=== PATIENT | male | born 1955 | race Caucasian/White ===

== ENCOUNTER 2025-05-05 09:52 | Outpatient (AMB) | payer MEDICARE, OTHER, SELFPAY ==
--- NOTE | 2025-05-05 09:58 | MHC.PC.OV ---
Vital Signs 05/05/25 10:08 Height 5 ft 7 in Weight 200 lb 4 oz BMI 31.4 BP 146/92 H Blood Pressure Location Rt brachial Position Sitting Respiration 15 Pulse 58 Pulse Source Pulse Oximeter Temp 97.6 F Temp Source Temporal Artery Scan Pulse Oximetry (%) 98 Oxygen Delivery Method Room Air Intake Visit Reasons: PE, PSYCHOLOGY FELLOW Intake Note: Jason presents in the office today to establish care. Allergies No Known Allergies Allergy (Verified 05/05/25 10:03) Medication List - Last Reconciled 05/05/25 by Jeffrey Mari MD alfuzosin ER 10 mg PO DAILY finasteride 5 mg PO DAILY rosuvastatin (Crestor) 5 mg PO DAILY Tobacco use date assessed: 05/05/25 Fall risk assessment: No Falls in past year Last assessed Fall Risk: 05/05/25 Dental Screening Dental Screen Date: 05/05/25 Did you have a dental visit in the last 12 months?: Yes Did you have a dental problem in the last 6 months where you did not have access to dental care?: No Was dental information given to patient?: Patient has dentist HPI PE, PSYCHOLOGY FELLOW HPI Details New Patient? ?? Prior PCP:? dr Mar In [place] Last office visit/CPE:? Apr Checkup f/u BP Acute issue(s):? BP elevated HLD BPH and has TURP Jun 18. 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 Followed by GI q3 yrs & due. Takes Probiotic. ?? PMHx:? HLD, BPH, Urinary Retention Dr Bess @ [facility]. H/o Covid. SurgHx:?GB 2014. R Groin hernia repair SocHx: Nonsmoker. etOH rarely. No Drugs PFSH Medical History (Updated 05/05/25 @ 10:56 by Bryce Arellano) Hernia FH: cholecystectomy Hypertension Enlarged prostate Hyperlipemia Family History (Updated 05/05/25 @ 10:07 by Daja Ang MA) Mother Hypertension Hyperlipemia Father Hypertension Brother Substance abuse Alcoholism Throat cancer Social History (Updated 05/05/25 @ 10:07 by Daja Ang MA) Housing: House Alcohol intake: never Patient Tobacco Use Status: Never used Tobacco e-Cigarette/Vaping Use: Never Used Second Hand Smoke Exposure: No Use of substances other than those prescribed or required for medical reasons: No service: Yes ([employer] 20 years) Current occupational status: retired Current occupational exposures/hazards: No Cognitive needs: No Hearing needs: No Vision needs: No Questionnaire PHQ-9 Over the last 2 weeks, how often have you been bothered by any of the following problems? 1. Little interest or pleasure in doing things: not at all 2. Feeling down, depressed, or hopeless: not at all 3. Trouble falling or staying asleep, or sleeping too much: not at all 4. Feeling tired or having little energy: not at all 5. Poor appetite or overeating: not at all 6. Feeling bad about yourself - or that you are a failure or have let yourself or your family down: not at all 7. Trouble concentrating on things, such as reading the newspaper or watching television: not at all 8. Moving or speaking so slowly that other people could have noticed. Or the opposite - being so fidgety or restless that you have been moving around a lot more than usual: not at all 9. Thoughts that you would be better off or of hurting yourself in some way: not at all Total score: 0 Depression Screening Interpretation: Negative Depression Screening Done: Yes 79260 - PHQ-9 Billing: Yes Source: Developed by Drs. William Blue, Alicia Britton, Luiz Morales and colleagues, with an educational bonny from [employer]. Thrive Questionnaire Date Thrive assessed: 05/05/25 I am a: Patient What is your living situation today?: I have a steady place to live Within the past 12 months, did the food you bought not last and you didn't have the money to get more?: Never true Within the past 12 months, did you worry whether your food would run out before you got money to buy more?: Never true Do you have trouble paying for medicines?: No Do you have trouble getting transportation to medical appointments?: No Do you have trouble paying your heating and electricity bill?: No Do you have trouble taking care of your child, family member or friend?: No Do you have trouble with day-to-day activities such as bathing, preparing meals, shopping, managing finances, etc.?: No Are you currently unemployed and looking for a job?: No Are you interested in more education?: No Please select the resources that you would like help with: None Currently or been in a relationship where the following occur: No concerns reported THRIVE Score: 0 AUDIT C Alcohol Use Questionnaire (AUDIT-C) 1. How often do you have a drink containing alcohol?: Never 3. How often do you have six or more drinks on one occasion?: Never Total Score: 0 RIP-7 AMB Questionnaire RIP-7 Date RIP - 7 assessed: 05/05/25 Feeling nervous, anxious, or on edge: 0 = Not at all Not being able to stop or control worryin = Not at all Worrying too much about different things: 0 = Not at all Trouble relaxin = Not at all Being so restless that it is hard to sit still: 0 = Not at all Becoming easily annoyed or irritable: 0 = Not at all Feeling afraid as if something awful might happen: 0 = Not at all Total RIP-7 score (0-4 normal; 5-9 mild; 10-14 moderate; 15-21 severe): 0 Source: Developed by Drs. William Blue, Alicia Britton, Luiz Morales and colleagues, with an educational bonny from [employer]. RIP-7 Assessment Billing RIP-7 Assessment Tool: RIP-7 Assessment 25582 Review of Systems Const Denies chills, Denies fatigue, Denies fever(s), Denies headache(s) and Denies weakness ENT Denies dizziness and Denies headache(s) Card Denies chest pain, Denies lightheadedness, Denies dyspnea and Denies other (Palpitations) Resp Denies cough, Denies dyspnea, Denies wheezing and Denies other ( shortness of breath) Musc Denies numbness and Denies tingling Neuro Denies dizziness, Denies headache(s), Denies numbness, Denies tingling, Denies paresthesias and Denies weakness Psych Denies anxiety and Denies depression Endo Denies fatigue Aller/Immun Denies wheezing Physical exam (Primary Care) Vital Signs: Last Vital Signs Temp 97.6 F 05/05/25 10:08 Pulse 58 05/05/25 10:08 Resp 15 05/05/25 10:08 BP 146/92 H 05/05/25 10:08 Pulse Ox 98 05/05/25 10:08 Oxygen Delivery Method Room Air 05/05/25 10:08 BMI result Body Mass Index 31.4 Tobacco/Smoking Status: Tobacco use Status Tobacco use date assessed 05/05/25 05/05/25 10:13 Patient Tobacco Use Status Never used Tobacco 05/05/25 10:13 e-Cigarette/Vaping Use Never Used 05/05/25 10:13 PHQ-9: PHQ-9 Score PHQ-9: Total score 0 05/05/25 10:26 Depression Screening Interpretation: Negative Thrive Assessment: Date of Thrive Assessment Date Thrive assessed 05/05/25 05/05/25 10:01 Currently or been in a relationship where the following occur: No concerns reported Const General: no acute distress and well developed Nutritional Appearance: well nourished Orientation/consciousness: patient oriented x3 HENMT Head: Yes normocephalic and Yes atraumatic Eyes General: appearance normal, both eyes and all related structures Pupils: Equal, round and reactive pupils present EOM: EOMs intact bilaterally Resp Effort & Inspection: normal respiratory effort Auscultation: clear to auscultation bilaterally Cardio Rate: regular rate Rhythm: regular rhythm Heart sounds: S1 normal heart sound present, S2 normal heart sound present, no gallops, no murmurs and no rubs Neuro General: patient oriented x3 and gait normal Cranial nerves: Yes Equal, round and reactive pupils present Psych Affect: normal affect Coding Level of Care Code New Pt Level 3 (11230) Diagnoses Hypertension I10 Hyperlipemia E78.5 Enlarged prostate N40.0 Screening for colon cancer Z12.11 Laboratory exam ordered as part of routine general medical examination Z00.00 Additional Codes RIP-7 Assessment Billing - RIP-7 Assessment Tool: RIP-7 Assessment 18083 ([id number]) PHQ-9 - 86621 - PHQ-9 Billing: Yes ([id number]) Assessment & Plan Assessment & Plan (1) Hypertension: Code(s): I10 - Essential (primary) hypertension Category: Medical Plan: History of hypertension. He says he has not been taking medication for this since he had significant weight loss Blood pressure is greater than 140/90 today. New patient and no prior data for blood pressures. Will give him a script for a blood pressure monitor. He will let me know if his blood pressures are running high at home. Will follow-up at next visit (2) Hyperlipemia: Code(s): E78.5 - Hyperlipidemia, unspecified Category: Medical Plan: He is on Crestor Check lipids (3) Enlarged prostate: Code(s): N40.0 - Benign prostatic hyperplasia without lower urinary tract symptoms Category: Medical Plan: Followed by urology Continue alfuzosin and finasteride Checking PSA (4) Screening for colon cancer: Code(s): Z12.11 - Encounter for screening for malignant neoplasm of colon Category: Medical Plan: Patient says he is followed about Q 3 years Referred to Gastroenterology (5) Laboratory exam ordered as part of routine general medical examination: Code(s): Z00.00 - Encounter for general adult medical examination without abnormal findings Category: Medical Plan: Check labs Orders: Orders Comprehensive [place]. Panel Fast Today Z00.00 - Encounter for general adult medical examination without abnormal findings Microalbumin, Random (w Creat) Today I10 - Essential (primary) hypertension Lipid Panel Today Z00.00 - Encounter for general adult medical examination without abnormal findings UA CC w/rflx Micro + Cult Today Z00.00 - Encounter for general adult medical examination without abnormal findings Complete Blood Count Auto Diff Today Z00.00 - Encounter for general adult medical examination without abnormal findings TSH reflex Free T4 Today Z00.00 - Encounter for general adult medical examination without abnormal findings Referrals Gastroenterology Referral Z12.11 - Encounter for screening for malignant neoplasm of colon Medications: New blood pressure monitor Automatic, Digital. Dx: I10. Daily As directed, 999 days/lifetime 1 ea 0RF I10 - Essential (primary) hypertension colchicine 0.6 mg PO BID PRN 8 tabs 2RF Gout Flare 4 days
[2025-05-05 10:08] VITALS: BP 146/92; PULSE 58; RESP 15; TEMP 36.4; O2SAT 98; BMI 31.4
--- OUTSIDE RECORDS SUMMARY | 2025-05-05 11:35 | XMS_ITS | Encounter Summary ---
Author Organization [facility] Address [address] [place] [address] Care Team Providers Care Rock Lather Name Role Phone Isabela Dhaliwal DO, Thomas J. Primary Care Prov ider Encounter Details Date Type Department Care Team (Late st Contact Info) Description 07/06/2022 Orders Only [facility] Lab [address] [place] [address] Aliza Interiano MD [address] [place] [address] Diarrhea of presumed infectious origin (Primary Dx); Loss of weight Social History Tobacco Use Types Packs/Day Years Used Date Smoking Tobacco: Never Smokeless Tobacco: Never Comments:: Alcohol Use Standard Drinks/Week Comments No 0 (1 standard drink = 0.6 oz pur e alcohol) Transportation Answer Date Recorded Please ashlyn the areas for ich the patient would like information or assistance: None Apply 01/05/2021 Lack of Transportation (Medical) Not on file 01/05/2021 Housing Stability Answer Date Recorded Please ashlyn the areas for ich the patient would like information or assistance: None Apply 01/05/2021 Unable to Pay for Housing in the Last Year Not o n file 01/05/2021 Last EPDS Total Score Not on file 01/05/2021 Unstable Housing in the Last Year Not on file 01/05/2021 Sex and Gender Information Value Date Recorded Sex Assigned at Male 12/24/2017 8:43 AM EDT Legal Sex Male 12:42 AM EDT Gender Identity Male 12/24/2017 8:43 AM EDT Sexual Orientation Straight 12/24/2017 8: 43 AM EDT documented as of this encounter Plan of Treatment Not on file documented as of this encounter Results * Due to [place] state law, this organization might not be sharing negative HIV tests. * SIBO - Miscellaneous Test (07/09/2022 7:45 AM EST) Miscellaneous Lab Test Result [facility] 07/17/2022 11:17 AM EST EXTERNAL NON-INTERFACE D LAB Breath Mouth region structure / Unknown Non-Blood Collection / Unknown 07/09/2022 7:45 AM EST 07/09/2022 7:53 AM EST Narrative EXTERNAL NON-INTERFACED LAB - 07/17/2022 11:17 AM EST See Scanned Report us Aliza Interiano MD LAB BLOOD ORDERABLES Final Resul t EXTERNAL NON-INTERFACED LAB documented in this encounter Visit Diagnoses Diagnosis Diarrhea of presumed infectious origin- Primary Loss of weight documented in this encounter Care Teams Rock Lather Relationship Specialty Start Date End Date Jeffrey Mar Jr., [address] [place] [id number] PCP - General Family Medicine 03/14/17 04/16/25 documented as of this encounter
--- OUTSIDE RECORDS SUMMARY | 2025-05-05 11:35 | XMS_ITS | Clinical Summary ---
Author Organization [facility] Address [address] [place] [address] Care Team Providers Care Artificial Flowers Starcher Name Role Phone Unavailable Primary Care Provider Unavailabl e Allergies No known active allergies Medications FOLIC ACID/MULTIVIT-CO N/LUTEIN (CENTRUM SILVER ORAL) Take 1 tablet by mouth daily. Active vitamin D3 25 mcg (1,000 unit) capsule Take 2,000 Units by mouth once a day. Active cyclobenzaprine (FLEXERIL) 10 mg tabletIndication s:Acute right-sided low back pain with sciatica, sciatica laterality unspecified Take 1 tablet (10 mg total) by mouth 3 times a day as needed for muscle spasms. 30 tablet 3 Active Additional Information Patient not taking.Reported on 01/10/2024 vitamin B complex capsule Take 1 capsule by mouth once a day. Active colchicine (COLCRYS) 0.6 mg tabletIndication s:Acute gout involving toe of left foot, unspecified cause 2 tabs PO once then 1 tab PO one hour later. If pain continues, take 1 tab PO daily for up to 3 days 6 tablet 5 3 Active sildenafiL (VIAGRA) 100 mg tablet Take 1 tablet (100 mg total) by mouth as needed for erectile dysfunction. 6 tablet 3 4 Active alfuzosin (UROXATRAL) 10 mg 24 hr tablet Take 1 tablet (10 mg total) by mouth once a day. 90 tablet 3 4 06/05/20 25 Active rosuvastatin (CRESTOR) 5 mg tabletIndication s:Pure hypercholesterol emia,Stage 3a chronic kidney disease (HCC) Take 1 tablet (5 mg total) by mouth once a day. 90 tablet 3 Active Active Problems Problem Noted Date Diagnosed Date Headache disorder 11/22/2023 Stage 3a chronic kidney disease 07/12/2020 Rash 09/19/2017 Contact dermatitis 09/05/2017 Microscopic hematuria 07/19/2016 Renal colic 07/19/2016 Allergic rhinitis 01/08/2014 Abdominal cramping 09/22/2013 Gout 04/19/2012 Toe joint pain 04/18/2012 Male erectile disorder 11/23/2010 Hypercholesterolemia 11/01/2010 Hypertension 11/01/2010 Resolved Problems Problem Noted Date Diagnosed Date Resolved Date Viral gastroenteritis 12/20/20162016 Acute laryngitis 10/26/2014 06/25/2017 Bloating 09/22/2013 06/25/2017 Upper respiratory infection 05/23/2012 06/25/2017 Overweight 11/23/2010 06/25/2017 Encounters Date Type Department Care Team Description 04/08/2025 Orders Only [facility] [address] [place] [address] Jeffrey Mar Jr., DO 02/23/2025 Refill [facility] [address] [place] [address] Jeffrey Mar Jr., DO Hypercholesterolemia; Stage 3a chronic kidney disease (HCC) from Last 3 Months Immunizations Immunization Administration Dates Next Due Covid-19 Monovalent Vaccine, Moderna, mRNA, PF 11/26/2020,10/29/2020 INFLUENZA, SPLIT VIRUS, TRIVALENT, PF ,06/17/2014,05/23/2012,05/25 Influenza, High Dose Seasona l, Preservative Free (FLUZONE HIGH-DOSE) 06/03/2021 Influenza, High Dose Seasona l, Quadrivalent PF 06/12/2022 Influenza, Injectable, Quadr ivalent Preservative Free 06/13/2023,05/05/2020 Influenza, Injectable, Quadr ivalent, Contains Preservative 05/30/2019,06/04/2018,06/25/2017 Influenza, Injectable, Quadr ivalent, Preservative Free 05/05/2020,06/19/2016 Influenza, Trivalent, MDV, Injectable 06/03/2013 Pneumococcal Conjugate Vacci ne, 7 Valent 08/10/2014 Pneumococcal Polysaccharide Vaccine, 23 Valent 07/13/2021,06/19/2016 Pneumococcal conjugate PCV20,polysaccharide [id number] conjugate, adjuvant, PF (Prevnar 20) 10/10/2023 RSV vaccine, recombinant, pr otein subunit RSVpreF, adjuvant reconstituted, 0.5 mL, PF 06/13/2023 Tetanus Toxoid, Reduced Diph theria Toxoid, and Acellular Pertussis Vaccine, Adsorbed 07/14/2019 Zoster Vaccine Recombinant 04/22/2019,11/22/2018 Family History Medical History Relation Name Comments Other Brother 1 Fraternal histo ry of Alcoholism Other Brother 2 Fraternal histo ry of Hypertension Other Father Paternal histor y of Cerebral Artery Aneurysm Other Mother Maternal histor y of Previously Well Relation Name Status Comments Brother 1 Brother 2 Father Mother Social History Tobacco Use Types Packs/Day Years Used Date Smoking Tobacco: Never Smokeless Tobacco: Never Tobacco Cessation:Counseling Given: Not Answered Comments:: Alcohol Use Standard Drinks/Week Comments No 0 (1 standard drink = 0.6 oz pur e alcohol) [facility] Utilities Answer Date Recorded In the past 12 months has th e [employer], gas, oil, or water [employer] threatened to shut off services in your home? No 01/21/2025 Hunger Vital Sign Answer Date Recorded Within the past 12 months, y ou worried that your food would run out before you got the money to buy more. Never true 01/22/20 25 Within the past 12 months, t he food you bought just didn't last and you didn't have money to get more. Never true 01/21/2025 Transportation Answer Date Recorded In the past 12 months, has l ack of reliable transportation kept you from medical appointments, meetings, work or from getting things needed for daily living? No 01/21/2025 Housing Answer Date Recorded Housing Risk Low 2 12/03/2024 Housing Risk Medium Not on file 12/03/2024 Housing Risk High Not on file 12/03/2024 What is your living situation today? [facility] 12/03/2024 Sex and Gender Information Value Date Recorded Sex Assigned at Male 12/24/2017 8:43 AM EDT Legal Sex Male 12:42 AM EDT Gender Identity Male 12/24/2017 8:43 AM EDT Sexual Orientation Straight 12/24/2017 8: 43 AM EDT Last Filed Vital Signs Vital Sign Reading Time Taken Comments Blood Pressure 169/95 05/12/2024 10:57 AM EDT Pulse 55 05/12/2024 10:57 AM EDT Temperature 36.8 C (98.3 F) 12/05/2023 10:36 AM EDT Respiratory Rate 22 10/11/2017 1:30 PM EST Oxygen Saturation 96% 04/16/2024 9:16 AM EDT Inhaled Oxygen Concentration - - Weight 90.7 kg (200 lb) 04/16/2024 9:16 AM EDT Height 170.2 cm (5' 7 ) 10/10/2023 9:05 AM EST Body Mass Index 31.32 10/10/2023 9:05 AM EST Plan of Treatment Health Maintenance Due Date Last Done Comments Cologuard 1955 FOBT / Fit Test 1955 Sigmoidoscopy 1955 Medicare AWV 01/29/1956 Fall Risk Screening 08/27/2024 Health Care Proxy Review 08/27/2024 Basic Metabolic Panel 04/16/2025 04/16/2024 , 10/10/2023, 04/12/2023, Additional history exists COVID-19 Vaccine ( season) 2025 06/13/2023, 05/15/2022, 11/28/2021, Additional history exists Influenza Vaccine (#1) 2025 , 06/12/2022, 06/03/2021, Additional history exists Depression Screening and Follow-Up 01/21/2026 01/21/2025 Social Drivers of Health Annual Screening 01/21/2026 01/21/2025 DTaP,Tdap,and Td Vaccines (2 - Td or Tdap) 07/14/2029 07/14/2019 Colon Cancer Screening 08/17/2032 Colonoscopy 08/17/2032 08/17/2022, 08/0 04/2022, 02/22/2017, Additional history exists Tobacco Screening 08/27/2042 04/16/2024 Zoster Vaccines Completed 04/22/2019, 11/22/2018 Hepatitis C Screening Completed 07/15/2019 RSV Vaccine (60+ years old and patients) Completed 06/13/2023 Pneumococcal Vaccine: 50+ Years Completed 10/10/2023, 07/13/2021, 06/19/2016 Alcohol/Substance Use Screening Completed 01/21/2025, 10/31/2023, 04/02/2023 Statin Therapy Completed 02/23/2025 Hepatitis B Vaccines Aged Out No long er eligible based on patient's age to complete this topic Medical Devices Implanted Type Area Auto Clocks Repairer Device Identifier Shelf Expiration Date Model / Serial / Lot System Hernia Mesh Polypropylene Medium 7cm Prolene 3/Bx - [id number] Implanted:Qty: 1 on 10/11/2017 by Pj Garzon MD at [facility] 10/24/2021 [facility] / / [id number] Procedures * Due to [place] [employer] law, this organization might not be sharing negative HIV tests. Procedure Name Priority Date/Time Associated Diagnosis Comments COMPREHENSIVE METABOLIC PANEL Routine 04/16/2024 9:53 AM EDT Stage 3a chronic kidney disease HM COLONOSCOPY Routine 08/17/2022 HEPATITIS C ANTIBODY W/REFLEX TO HCV RNA, QUANTITATIVE PCR Routine 07/15/2019 8:08 AM EST from Last 3 Months or Most Recently Relevant to Health Maintenance Results * Due to [place] [employer] law, this organization might not be sharing negative HIV tests. * (ABNORMAL) Comprehensive Metabolic Panel (04/16/2024 9:53 AM EDT) Glucose 76 65 - 99 mg/dL 04/16/2024 6:28 PM EDT [facility] Comment: Fasting reference interval BUN 16 7 - 25 mg/dL 04/16/2024 6:28 PM EDT [facility] Creatinine 1.25 0.70 - 1.35 mg/dL 04/16/2024 6:28 PM EDT [facility] eGFR 62 > OR = 60 mL/min/1. 73m2 04/16/2024 6:28 PM EDT [facility] Bun/Creatinine Ratio SEE NOTE: 6 - (calc) 04/16/2024 6:28 PM EDT [facility] Comment: Not Reported: BUN and Creatinine are within reference range. Sodium 139 135 - 146 mmol/L 04/16/2024 6:28 PM EDT [facility] Potassium 4.6 3.5 - 5.3 mmol/L 04/16/2024 6:28 PM EDT [facility] Chloride 107 98 - 110 mmol/L 04/16/2024 6:28 PM EDT [facility] Carbon Dioxide 27 20 - 32 mmol/L 04/16/2024 6:28 PM EDT [facility] Calcium 9.5 8.6 - 10.3 mg/dL 04/16/2024 6:28 PM EDT [facility] Protein, Total 6.6 6.1 - 8.1 g/dL 04/16/2024 6:28 PM EDT [facility] Albumin 4.3 3.6 - 5.1 g/dL 04/16/2024 6:28 PM EDT [facility] Globulin 2.3 1.9 - 3.7 g/dL (calc) 04/16/2024 6:28 PM EDT [facility] Albumin/Globuli n Ratio 1.9 1.0 - 2.5 (calc) 04/16/2024 6:28 PM EDT [facility] Bilirubin, Total 0.7 0.2 - 1.2 mg/dL 04/16/2024 6:28 PM EDT [facility] Alkaline Phosphatase 72 35 - 144 U/L 04/16/2024 6:28 PM EDT [facility] AST 27 10 - 35 U/L 04/16/2024 6:28 PM EDT [facility] ALT 53(H) 9 - 46 U/L 04/16/2024 6:28 PM EDT [facility] Blood Structure of peripheral vein / Unknown 04/16/2024 9:53 AM EDT 04/16/2024 5:19 PM EDT Narrative [facility] - 04/16/2024 6:30 PM EDT FASTING:YES us Jeffrey Mar Jr., DO LAB BLOOD ORDERABL ES Final Result [facility] [address], [place] [address], [place] [phone] [facility] [address] [place] [address] * HM Colonoscopy (08/17/2022) Aliza Interiano MD HEALTH MAINTENANCE Final Result * Hepatitis C Antibody w/Reflex to HCV RNA, Quantitative PCR (07/15/2019 8:08 AM EST) Hepatitis C Antibody NON-REACT DAGO NON-REACT DAGO 07/15/2019 11:53 PM EST [facility] Signal To Cut-Off 0.01 <1.00 07/15/2019 11:53 PM EST [facility] Comment: HCV antibody was non-reactive. There is no laboratory evidence of HCV infection. In most cases, no further action is required. However, if recent HCV exposure is suspected, a test for HCV RNA (test code 28734) is suggested. For additional information please refer to http://education.Business e via [place]/faq/CZW39x4 (This link is being provided for informational/ educational purposes only.) 07/15/2019 8:08 AM EST 07/15/2019 5:58 PM EST Narrative [facility] - 07/16/2019 12:07 AM EST FASTING:YES Jeffrey Mar Jr., DO LAB BLOOD ORDERABL ES Final Result [facility] [address], [place] [address], [facility] [address] [place] [address] from Last 3 Months or Most Recently Relevant to Health Maintenance Insurance [facility] MEDICARE [facility] Advance Directives Documents on File Type Date Recorded Patient Mash Grinder Expl anation Health Care Proxy 10/12/2023 8:46 AM 10/12/spouse Healthcare Agents on File Name Relationship Healthcare Agent Relationship Communication Mary Roa Spouse Health Care Agen t [email or web address]
--- OUTSIDE RECORDS SUMMARY | 2025-05-05 11:35 | XMS_ITS | Encounter Summary ---
Author Organization [facility] Address [address] [place] [address] Care Team Providers Care Mental Telepathist Name Role Phone Isabela Dhaliwal DO, [place] J. Primary Care Prov ider Encounter Details Date Type Department Care Team (Late st Contact Info) Description 08/02/2022 Orders Only [facility] Lab [address] [place] [address] Aliza Interiano MD [address] [place] [address] Gastric tympany (Primary Dx); Mild dietary indigestion Social History Tobacco Use Types Packs/Day Years Used Date Smoking Tobacco: Never Smokeless Tobacco: Never Comments:: Alcohol Use Standard Drinks/Week Comments No 0 (1 standard drink = 0.6 oz pur e alcohol) Transportation Answer Date Recorded Please ashlyn the areas for wh ich the patient would like information or assistance: Health Insurance 07/21/2022 Lack of Transportation (Medical) Not on file 07/21/2022 Housing Stability Answer Date Recorded Please ashlyn the areas for ich the patient would like information or assistance: Health Insurance 07/21/2022 Unable to Pay for Housing in the Last Year Not o n file 07/21/2022 Last EPDS Total Score Not on file 07/21/2022 Unstable Housing in the Last Year Not on file 07/21/2022 Sex and Gender Information Value Date Recorded Sex Assigned at Male 12/24/2017 8:43 AM EDT Legal Sex Male 12:42 AM EDT Gender Identity Male 12/24/2017 8:43 AM EDT Sexual Orientation Straight 12/24/2017 8: 43 AM EDT documented as of this encounter Plan of Treatment Scheduled Orders Name Type Priority Associated Diagnoses Orde r Schedule Celiac Diagnostic Panel w/Gliadin, All Ages (Includes: IgA, tTG IgA/IgG and Giadin IgA/IgG) Lab Routine Gastric tympany Mild dietary indigestion Expected: 08/02/2022, Expires: 08/02/2023 Comprehensive Metabolic Panel Lab Routine Gastric tympany Mild dietary indigestion Expected: 08/02/2022, Expires: 08/02/2023 CBC Auto Differential Lab Routine Gastric tympany Mild dietary indigestion Expected: 08/02/2022, Expires: 08/02/2023 SIBO - Miscellaneous Test Lab Routine Gastric tympany Mild dietary indigestion Expected: 08/02/2022, Expires: 08/02/2023 documented as of this encounter Visit Diagnoses Diagnosis Gastric tympany- Primary Acute dilatation of stomach Mild dietary indigestion Dyspepsia and other specified disorders of function of stomach documented in this encounter Care Teams Mental Telepathist Relationship Specialty Start Date End Date Jeffrey Mar Jr., DO [address] [place] [id number] PCP - General Family Medicine 03/14/17 04/16/25 documented as of this encounter
--- OUTSIDE RECORDS SUMMARY | 2025-05-05 11:35 | XMS_ITS | Encounter Summary ---
Author Organization [facility] Address [address] [place] [address] Care Team Providers Care Product Sales Representative Name Role Phone Isabela Dhaliwal DO, [place] J. Primary Care Prov ider Encounter Details Date Type Department Care Team (Late st Contact Info) Description 08/03/2022 Orders Only [facility] Lab [address] [place] [address] Aliza Interiano MD [address] [place] [address] Social History Tobacco Use Types Packs/Day Years [...] on file documented as of this encounter Visit Diagnoses Not on filedocumented in this encounter Care Teams Product Sales Representative Relationship Specialty Start Date End Date Jeffrey Mar Jr., DO [address] [place] [id number] PCP - General Family Medicine 03/14/17 04/16/25 documented as of this encounter
== END 2025-05-05 11:05 | disposition home or self-care (01) ==
PROVIDERS: PCP Family Medicine; Visit Provider Family Medicine
DX: I10 Essential (primary) hypertension (principal); E78.5 Hyperlipidemia, unspecified; N40.0 Benign prostatic hyperplasia without lower urinary tract symptoms; Z12.11 Encounter for screening for malignant neoplasm of colon; Z00.00 Encounter for general adult medical examination without abnormal findings

== ENCOUNTER 2025-05-05 09:52 | Outpatient (REF) | payer MEDICARE, OTHER, SELFPAY ==
[2025-05-05 14:11] LABS: MANUAL DIFF FLAG NO
[2025-05-05 14:14] LABS: Appearance Urine Cloudy; Glucose Urine UA Negative (Negative); PH 6.0 (5.0-9.0); Specific Gravity - Urine 1.020 (1.005-1.025)
[2025-05-05 14:25] LABS: Hematocrit 47.7 % (42.0-52.0); Hemoglobin 16.6 g/dl (14.0-18.0); Imm Gran Abs Auto 0.04 X10*3/uL (0.00-0.03); Imm Gran Pct Auto 0.4 % (0.0-0.4); Lymphocytes Absolute Auto 3.5 X10*3/uL (1.2-4.9); Mean Corpuscular HGB Conc 34.8 g/dl (31.0-36.0); Mean Corpuscular Hemoglobin 31.2 pg (27.0-33.0); Mean Corpuscular Volume 89.7 fL (80.0-98.0); NRBC Abs Auto 0.000 X10*3/uL (0.0-0.012); NRBC Pct Auto 0.0 /100WBC (0.0-0.2); Platelet Count 228 X10*3/uL (160-400); Red Blood Count 5.32 X10*6/uL (4.60-5.80); White Blood Count 9.3 X10*3/uL (4.8-10.8)
[2025-05-05 14:59] LABS: Alanine Aminotransferase 50 U/L (0-40); Albumin Level 4.5 g/dL (3.5-5.0); Alkaline Phosphatase 76 U/L (39-117); Anion Gap 11 (12-20); Aspartate Amino Transferase 36 U/L (5-37); Blood Urea Nitrogen 17 mg/dL (9-16); Calcium 9.3 mg/dL (8.4-10.2); Carbon Dioxide 27 mmol/L (22-29); Chloride 109 mmol/L (96-108); Cholesterol 153 mg/dL (<200); Estimated Glomerular Filt Rate 57; HDL Cholesterol 44 mg/dL (>40); Potassium 4.5 mmol/L (3.3-5.1); Sodium 142 mmol/L (135-145); Total Protein 6.9 g/dL (6.5-8.0); Triglycerides 110 mg/dL (<150); Uric Acid 7.3 mg/dL (3.4-7.0)
[2025-05-05 15:05] LABS: Microalbum/Creatinine Ratio Ur 12.8 ug/mg cr (<30)
== END 2025-05-05 09:53 | disposition home or self-care (01) ==
LOC: HO.WFDLDS 09:52
PROVIDERS: Visit Provider Family Medicine
DX: Z00.00 Encounter for general adult medical examination without abnormal findings (principal); Z12.11 Encounter for screening for malignant neoplasm of colon; I10 Essential (primary) hypertension; N40.0 Benign prostatic hyperplasia without lower urinary tract symptoms; E78.5 Hyperlipidemia, unspecified; Z79.899 Other long term (current) drug therapy; Z87.39 Personal history of other diseases of the musculoskeletal system and connective tissue
CPT/HCPCS: 36415; 80053; 80061; 81003; 82043; 82570; 84443; 84550; 85025; 96127; 99202

== ENCOUNTER 2025-08-26 11:49 | Outpatient (AMB) | payer MEDICARE, OTHER, SELFPAY ==
--- NOTE | 2025-08-26 12:06 | A.OFFPC_ITS ---
Vital Signs 08/26/25 12:09 Height 5 ft 7 in Weight 206 lb BMI 32.3 BP 116/64 Blood Pressure Location Rt brachial Position Sitting Pulse 59 Pulse Source Pulse Oximeter Temp 99 F Handedness Right Intake Visit Reasons: CPE with f/u labs and health maint. Intake Note: Jason is a 70 year old male who presents today for a office visit. Allergies No Known Allergies Allergy (Verified 08/26/25 12:11) Medication List - Last Reconciled 08/26/25 by Jeffrey Mari MD alfuzosin ER 10 mg PO DAILY blood pressure monitor Automatic, Digital. Dx: I10. Daily As directed, 999 days/lifetime colchicine 0.6 mg PO BID PRN 4 days finasteride 5 mg PO DAILY losartan 50 mg PO DAILY 90 days rosuvastatin (Crestor) 5 mg PO DAILY Tobacco use date assessed: 05/05/25 Dental Screening Dental Screen Date: 05/05/25 HPI CPE with f/u labs and health maint. HPI Details 70 y/o male presents for an extended exa m with f/u labs, health maint. Labs drawn 05/05/25. Reviewed labs with pt. AST 36. ALT 50. Triglycerides 110. TC 153. LDL 87. HDL 44. Blood pressure today 116/64, 59p. He is on losartan 50mg daily. [facility] Medical History (Updated 08/26/25 @ 12:58 by Bryce Arellano) Hernia FH: cholecystectomy Hypertension Enlarged prostate Hyperlipemia Family History (Updated 05/05/25 @ 10:07 by Daja Ang [place]) Mother Hypertension Hyperlipemia Father Hypertension Brother Substance abuse Alcoholism Throat cancer Social History (Updated 05/05/25 @ 10:07 by Daja Agn [place]) Housing: House Alcohol intake: never Patient Tobacco Use Status: Never used Tobacco e-Cigarette/Vaping Use: Never Used Second Hand Smoke Exposure: No service: Yes ([employer] 20 years) Current occupational status: retired Current occupational exposures/hazards: No Cognitive needs: No Hearing needs: No Vision needs: No Questionnaire PHQ-9 Over the last 2 weeks, how often have you been bothered by any of the following problems? 1. Little interest or pleasure in doing things: not at all 2. Feeling down, depressed, or hopeless: not at all 3. Trouble falling or staying asleep, or sleeping too much: not at all 4. Feeling tired or having little energy: not at all 5. Poor appetite or overeating: not at all 6. Feeling bad about yourself - or that you are a failure or have let yourself or your family down: not at all 7. Trouble concentrating on things, such as reading the newspaper or watching television: not at all 8. Moving or speaking so slowly that other people could have noticed. Or the opposite - being so fidgety or restless that you have been moving around a lot more than usual: not at all 9. Thoughts that you would be better off or of hurting yourself in some way: not at all Total score: 0 Depression Screening Interpretation: Negative Depression Screening Done: Yes Source: Developed by Drs. William Blue, Alicia Britton, Luiz Morales and colleagues, with an educational bonny from [email or web address]. Thrive Questionnaire Date Thrive assessed: 04/28/25 I am a: Patient What is your living situation today?: I have a steady place to live Within the past 12 months, did the food you bought not last and you didn't have the money to get more?: Never true Within the past 12 months, did you worry whether your food would run out before you got money to buy more?: Never true Do you have trouble paying for medicines?: No Do you have trouble getting transportation to medical appointments?: No Do you have trouble paying your heating and electricity bill?: No Do you have trouble taking care of your child, family member or friend?: No Do you have trouble with day-to-day activities such as bathing, preparing meals, shopping, managing finances, etc.?: No Are you currently unemployed and looking for a job?: No Are you interested in more education?: No Currently or been in a relationship where the following occur: No concerns reported THRIVE Score: 0 AUDIT C Alcohol Use Questionnaire (AUDIT-C) 1. How often do you have a drink containing alcohol?: Never 2. How many drinks containing alcohol do you have on a typical day when you are drinking?: 1 or 2 (none) 3. How often do you have six or more drinks on one occasion?: Never Total Score: 0 Score Reviewed/Action Taken: Yes RIP-7 AMB Questionnaire RIP-7 Date RIP - 7 assessed: 05/05/25 Feeling nervous, anxious, or on edge: 0 = Not at all Not being able to stop or control worryin = Not at all Worrying too much about different things: 0 = Not at all Trouble relaxin = Not at all Being so restless that it is hard to sit still: 0 = Not at all Becoming easily annoyed or irritable: 0 = Not at all Feeling afraid as if something awful might happen: 0 = Not at all Total RIP-7 score (0-4 normal; 5-9 mild; 10-14 moderate; 15-21 severe): 0 Source: Developed by Drs. William Blue, Alicia Britton, Luiz Morales and colleagues, with an educational bonny from [email or web address]. Review of Systems Const Denies chills, Denies fatigue, Denies fever(s), Denies headache(s) and Denies weakness Eyes Denies change in vision ENT Denies dizziness, Denies headache(s), Denies hearing loss, Denies nasal congestion, Denies sinus pain, Denies sinus pressure and Denies sore throat Card Denies chest pain, Denies lightheadedness, Denies dyspnea and Denies other (palpitations) Resp Denies cough, Denies dyspnea and Denies wheezing GI Denies abdominal pain, Denies melena, Denies hematochezia, Denies change in bowel habits, Denies dyspepsia and Denies nausea Denies hematuria and Denies dysuria Musc Denies abnormal gait, Denies myalgias, Denies arthralgias, Denies numbness and Denies tingling Skin/Breast Denies rash, Denies unusual bruising and Denies wounds Neuro Denies abnormal gait, Denies dizziness, Denies headache(s), Denies memory loss, Denies numbness, Denies Sensory deficit (Neuro), Denies tingling and Denies weakness Psych Denies anxiety, Denies depression and Denies memory loss Endo Denies cold intolerance, Denies fatigue, Denies heat intolerance, Denies polydipsia and Denies polyuria Ever/Lymph Denies easy bleeding and Denies easy bruising Aller/Immun Denies wheezing Physical exam (Primary Care) Vital Signs: Last Vital Signs Temp 99 F 08/26/25 12:09 Pulse 59 08/26/25 12:09 BP 116/64 08/26/25 12:09 BMI result Body Mass Index 32.3 Tobacco/Smoking Status: Tobacco use Status Tobacco use date assessed 05/05/25 08/26/25 12:06 Patient Tobacco Use Status Never used Tobacco 08/26/25 12:06 e-Cigarette/Vaping Use Never Used 08/26/25 12:06 PHQ-9: PHQ-9 Score PHQ-9: Total score 0 08/26/25 12:38 Depression Screening Interpretation: Negative Thrive Assessment: Date of Thrive Assessment Date Thrive assessed 04/28/25 08/26/25 12:06 Currently or been in a relationship where the following occur: No concerns reported Const General: no acute distress, well developed, alert and awake Nutritional Appearance: well nourished Orientation/consciousness: patient oriented x3 HENMT Head: Yes normocephalic and Yes atraumatic Ears: hearing grossly normal bilaterally and TM's normal bilaterally General nose exam: Normal external nose present and Normal nares present Mouth: Normal oral and palatal mucosa present and moist mucous membranes Teeth and gingiva: dentition normal Throat: Yes posterior oropharynx normal Eyes General: appearance normal, both eyes and all related structures Pupils: Equal, round and reactive pupils present and Pupil accommodation reflex normal EOM: EOMs intact bilaterally Neck Neck: Yes normal visual inspection, Yes no lymphadenopathy and Yes trachea midline Thyroid: Thyroid normal Carotids: no bruits Lymphatic: no lymphadenopathy noted Chest Chest palpation & inspection: normal inspection of the chest Resp Effort & Inspection: normal respiratory effort Auscultation: clear to auscultation bilaterally Cardio Rate: regular rate Rhythm: regular rhythm Heart sounds: S1 normal heart sound present, S2 normal heart sound present, no gallops, no murmurs and no rubs Bruits: no abdominal aortic bruits and no carotid bruits GI Palpation (GI): No Abdominal aortic bruit present, Soft to palpation, nontender, No hepatosplenomegaly present and No Rebound tenderness present Auscultation: normal bowel sounds General: Yes no CVA tenderness Back/Spine/Pelvis Back: no CVA tenderness Cervical Spine: cervical ROM normal and No Cervical spine tenderness Thoracic/Lumbar Spine: thoraco-lumbar ROM normal, No pain with thoraco-lumbar ROM, No thoracic spinal tenderness and No lumbar spinal tenderness Skin Lesions: no lesions Rashes: no rashes Trauma: no lacerations or abrasions Wounds: no wounds Nails: normal Neuro General: patient oriented x3 Cranial nerves: Yes Equal, round and reactive pupils present Cognition (Neuro): normal cognition Gait exam (Neuro): Normal gait present Motor exam (neuro): 5/5 motor strength present throughout Sensory Exam: No Sensory deficit (Neuro) Deep tendon reflexes (DTR's): Right patellar reflex intensity grade: 2+ and Left patellar reflex intensity grade: 2+ Extrem General: Yes normal to inspection and No edema Psych Appearance: grossly normal Affect: normal affect Attitude: cooperative Thought process: Normal thought process present Coding Level of Care Code Est Pt Level 4 (99025) Diagnoses Hypertension I10 Hyperlipemia E78.5 Elevated ALT measurement R74.01 Screening for prostate cancer Z12.5 Screening for colon cancer Z12.11 Adult general medical exam Z00.00 Assessment & Plan Assessment & Plan (1) Hypertension: Code(s): I10 - Essential (primary) hypertension Category: Medical Plan: Blood pressure is in normal range. He is not on any medications any longer Continue monitoring blood pressure at home with cuff He will let me know if blood pressures are rising (2) Hyperlipemia: Code(s): E78.5 - Hyperlipidemia, unspecified Category: Medical Plan: Taking rosuvastatin as prescribed Lipids all within normal range Continue rosuvastatin (3) Elevated ALT measurement: Code(s): R74.01 - Elevation of levels of liver transaminase levels Category: Medical Plan: Elevated ALT Will repeat this prior to next visit and review with patient. (4) Screening for prostate cancer: Code(s): Z12.5 - Encounter for screening for malignant neoplasm of prostate Category: Medical Plan: Patient followed by Urology and had recent TURP Follow-up with urology as recommended (5) Screening for colon cancer: Code(s): Z12.11 - Encounter for screening for malignant neoplasm of colon Category: Medical Plan: Patient was referred to [facility] They are managing scheduling for his next colonoscopy in he says this is due in about 18 months. Follow-up with GI as recommended (6) Adult general medical exam: Code(s): Z00.00 - Encounter for general adult medical examination without abnormal findings Category: Medical Plan: 70-year-old male presents for extended exam Encouraged healthy diet with active lifestyle and plenty of exercise
[2025-08-26 12:09] VITALS: BP 116/64; PULSE 59; TEMP 37.2; BMI 32.3
--- OUTSIDE RECORDS SUMMARY | 2025-08-26 13:34 | XMS_ITS | Encounter Summary ---
Author Organization [facility] Address [address] [place] [address] Care Team Providers Care Director Of Software Engineering Name Role Phone Isabela Dhaliwal DO, [place] J. Primary Care Prov ider Encounter Details Date Type Department Care Team (Late st Contact Info) Description 08/03/2022 Orders Only [facility] Lab [address] [place] [address] Aliza Interiano MD [address] [place] [address] Social History Tobacco Use Types Packs/Day Years [...] on filedocumented in this encounter Care Teams Director Of Software Engineering Relationship Specialty Start Date End Date Jeffrey Mar Jr., DO [address] [place] [phone] PCP - General Family Medicine 03/14/17 04/16/25 documented as of this encounter
--- OUTSIDE RECORDS SUMMARY | 2025-08-26 13:34 | XMS_ITS | Clinical Summary ---
Author Organization [facility] Address [address] [place] [address] Phone Care Team Providers Care Front Worker Name Role Phone DaraJeffrey villagomez Primary Care Provider + Encounters Date Type Department Care Team Description 07/29/[address] [facility] [address] [facility] [place] [address] Chago Wilson MD Urinary tract infection, site not specified; Benign prostatic hyperplasia with lower urinary tract symptoms from Last 3 Months Social History Tobacco Use Types Packs/Day Years Used Date Smoking Tobacco: Never Assessed Sex and Gender Information Value Date Recorded Sex Assigned at Not on file Legal Sex Male 6:08 PM EST Gender Identity Not on file Sexual Orientation Not on file Plan of Treatment Health Maintenance Due Date Last Done Comments Colorectal Cancer Screening: Colonoscopy 1955 DTaP,Tdap,and Td Vaccines (1 - Tdap) 1974 Pneumococcal Vaccine: 50+ Ye ars (1 of 1 - PCV) 2005 Zoster Vaccines (1 of 2) 2005 Depression Screening 08/27/2024 COVID-19 Vaccine (1 - 2024-2 6 season) 2025 Influenza Vaccine (#1) 2025 Abdominal Aortic Aneurysm (A AA) Screen 07/29/2025 Cholesterol Screening (Lipid Panel) 07/29/2025 Falls Risk Assessment 07/29/2025 Hepatitis C Screening 07/29/2025 Medicare Annual Wellness Visit 07/29/2025 Social Influencers of Health Screening 07/29/2025 RSV Immunization Adult Patie nts (1 - 1-dose 75+ series) 2030 HIB Vaccines Aged Out No longer eligi ble based on patient's age to complete this topic HPV Vaccines Aged Out No longer eligi ble based on patient's age to complete this topic Hepatitis A Vaccines Aged Out No long er eligible based on patient's age to complete this topic Hepatitis B Vaccines Aged Out No long er eligible based on patient's age to complete this topic IPV Vaccines Aged Out No longer eligi ble based on patient's age to complete this topic MMR Vaccines Aged Out No longer eligi ble based on patient's age to complete this topic Meningococcal ACWY Vaccine Aged Out N o longer eligible based on patient's age to complete this topic Meningococcal B Vaccine Aged Out No l onger eligible based on patient's age to complete this topic RSV Immunization Patients Un estephanie 20 months Aged Out No longer eligible b ased on patient's age to complete this topic Varicella Vaccines Aged Out No longer eligible based on patient's age to complete this topic Procedures Procedure Name Priority Date/Time Associated Diagnosis Comments CULTURE URINE Routine 07/29/2025 12:00 AM EST Urinary tract infection, site not specified Benign prostatic hyperplasia with lower urinary tract symptoms from Last 3 Months Results * Culture urine (07/29/2025 12:00 AM EST) Culture, Urine No growth 07/30/2025 12:57 PM EST [facility] Urine Urine specimen obtained by clean catch procedure / Unknown 07/29/2025 07/29/2025 6:12 PM EST us Chago Wilson MD LAB MICROBIOLOGY - NERAL ORDERABLES Final Result [facility] [address] [place] [address], from Last 3 Months Insurance [facility] Care Teams Front Worker Relationship Specialty Start Date End Date Jeffrey Mar DO [address] [place] [address] [address] [place]ON[place] Nunes [phone] PCP - General Family Medicine 07/29/25
--- OUTSIDE RECORDS SUMMARY | 2025-08-26 13:34 | XMS_ITS | Encounter Summary ---
Author Organization [facility] Address [address] [place] [address] Care Team Providers Care Credentialing Analyst Name Role Phone Isabela Dhaliwal DO, [place] J. Primary Care Prov ider Encounter Details Date Type Department Care Team (Late st Contact Info) Description 08/02/2022 Orders Only [facility] Lab [address] [place] [address] Aliza Interiano MD [address] [place] [address] Gastric tympany (Primary Dx); Mild dietary indigestion [...] stomach documented in this encounter Care Teams Credentialing Analyst Relationship Specialty Start Date End Date Jeffrey Mar Jr., DO [address] [place] [id number] PCP - General Family Medicine 03/14/17 04/16/25 documented as of this encounter
--- OUTSIDE RECORDS SUMMARY | 2025-08-26 13:35 | XMS_ITS | Clinical Summary ---
Author Organization [facility] Address [address] [place] [phone] Phone Care Team Providers Care Attendant Self Service Store Name Role Phone Jeffrey Mar DO Primary Care Provider + Allergies No known active allergies Medications multivitamins-m inerals-folic dpit-fvffawg-hj tein (COMPLETE SENIOR) 0.4 mg-300 mcg- 250 mcg Tab Take 1 tablet by mouth daily. Active rosuvastatin (CRESTOR) 5 MG tablet Take 5 mg by mouth. 10/10/2023 Active sildenafiL (VIAGRA) 100 mg tablet Take 100 mg by mouth. 10/10/2023 Active tamsulosin (FLOMAX) 0.4 mg Cap Take 0.4 mg by mouth. 01/10/2024 Active fluconazole (DIFLUCAN) 100 MG tabletIndicatio ns:Tinea pedis Take 3 tablets (300 mg total) by mouth once a week. 39 tablet 1 05/19/2024 Active Active Problems Problem Noted Date Diagnosed Date Hx of atypical nevus 05/19/2024 Overview (05/19/2024): 05/17/23 A. 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 History of SCC (squamous cell carcinoma) of skin 05/19/2024 Overview (05/19/2024): SCCIS 2019 scalp SCCIS treated with 5FU bid for 6 weeks ([facility] no records) Social History Tobacco Use Types Packs/Day Years Used Date Smoking Tobacco: Never Assessed Education Answer Date Recorded Are you interested in more education? Not on rehana e 12/22/2022 Are you concerned about learning? Not on file 12/22/2022 No 12/22/2022 No 12/22/2022 Digital Access Answer Date Recorded No 01/23/2023 No 01/23/2023 Reliable internet access at home? Not on file 01/23/2023 Device with a working camera? Not on file Sex and Gender Information Value Date Recorded Sex Assigned at Male 05/17/2023 1:23 PM EDT Legal Sex Male 9:36 PM EDT Gender Identity Male 05/17/2023 1:23 PM EDT Sexual Orientation Straight 05/17/2023 1: 23 PM EDT Plan of Treatment Health Maintenance Due Date Last Done Comments Adult Td,Tdap Booster 1955 DEPRESSION SCREENING 1967 SMOKING Hx and SMOKELESS TOBACCO SCREENING 01/29/1968 COLOGUARD 01/29/2000 COLONOSCOPY 01/29/2000 COLORECTAL CANCER SCREENING 01/29/2000 FIT TEST 01/29/2000 FOBT 01/29/2000 SIGMOIDOSCOPY 01/29/2000 VIRTUAL COLONOSCOPY 01/29/2000 PNEUMOCOCCAL VACCINES (50+ years) (1 of 1 - PCV) 2005 ZOSTER VACCINES (1 of 2) 2005 INFLUENZA VACCINE (#1) 2025 06/12/2022 COVID-19 VACCINE ( - season) 2025 LIPID PANEL 04/16/2029 04/16/2024, 08/08/2023, 10/10/2023, Additional history exists RSV VACCINE (1 - 1-dose 75+ series) 2030 HEPATITIS C SCREENING Completed 07/15/2019 HEPATITIS A VACCINES Aged Out No long er eligible based on patient's age to complete this topic HIB VACCINES Aged Out No longer eligi ble based on patient's age to complete this topic MENINGOCOCCAL VACCINES (ACWY) Aged Out No longer eligible based on patient's age to complete this topic MENINGOCOCCAL VACCINES (B) Aged Out N o longer eligible based on patient's age to complete this topic Medical Devices Not on file Insurance [facility] [employer] MEDICARE SUPPLEMENT [facility] MEDICARE SUPPLEMENT MEDICARE PART A & B [facility] [employer] MEDICARE SUPPLEMENT FOR LIFE MEDICARE SUPPLEMENT FOR [employer] MEDICARE SUPPLEMENT FOR LIFE MEDICARE SUPPLEMENT [facility] FOR LIFE MEDICARE SUPPLEMENT [facility] FOR LIFE MEDICARE SUPPLEMENT Care Teams Attendant Self Service Store Relationship Specialty Start Date End Date Jeffrey Mar DO [address] [place] [phone] PCP - General Family Medicine 12/19/22 Additional Source Comments The information contained in this document represents components of the legal health record. It is not the complete legal health record.[facility]
--- OUTSIDE RECORDS SUMMARY | 2025-08-26 13:35 | XMS_ITS | Encounter Summary ---
Author Organization [facility] Address [address] [place] [address] Care Team Providers Care Banquet Supervisor Name Role Phone Isabela Dhaliwal DO, [place] J. Primary Care Prov ider Encounter Details Date Type Department Care Team (Late st Contact Info) Description 07/06/2022 Orders Only [facility] Lab [address] [place] [address] Aliza Interiano MD [address] [place] [address] Diarrhea of presumed infectious origin (Primary Dx); [...] of this encounter Results * Due to [place] state law, this organization might not be [...] weight documented in this encounter Care Teams Banquet Supervisor Relationship Specialty Start Date End Date Jeffery Mar Jr., [address] [place] [phone] PCP - General Family Medicine 03/14/17 04/16/25 documented as of this encounter
--- OUTSIDE RECORDS SUMMARY | 2025-08-26 13:35 | XMS_ITS | Clinical Summary ---
Author Organization [facility] Address [address] [place] [address] Care Team Providers Care Functional Mental Disability Teacher Name Role Phone Unavailable Primary Care Provider Unavailabl e Allergies No known active allergies Medications FOLIC ACID/MULTIVIT-NE N/LUTEIN (CENTRUM SILVER ORAL) Take 1 tablet [...] once a day. 90 tablet 3 4 Active rosuvastatin (CRESTOR) 5 mg tabletIndication s:Pure hypercholesterol emia,Stage 3a chronic kidney disease (HCC) Take 1 tablet (5 mg total) by mouth once a day. 90 tablet 3 5 Active Active Problems Problem Noted Date Diagnosed [...] respiratory infection 05/23/2012 06/25/2017 Overweight 11/23/2010 06/25/2017 Immunizations Immunization Administration Dates Next Due Covid-19 [...] Vaccine, 23 Valent 07/13/2021,06/19/2016 Pneumococcal conjugate PCV20,polysaccharide [id number] conjugate, adjuvant, PF (Prevnar 20) 10/10/2023 RSV [...] drink = 0.6 oz pur e alcohol) [facility] Utilities Answer Date Recorded In the past 12 months has th e electric, gas, oil, or water [employer] threatened to shut off services in your [...] Screening 08/27/2024 Health Care Proxy Review 08/27/2024 Influenza Vaccine (#1) 2025 , 06/12/2022, 06/03/2021, Additional history exists Basic Metabolic Panel 04/16/2025 04/16/2024 , 10/10/2023, 04/12/2023, Additional history exists COVID-19 Vaccine ( season) 2025 06/13/2023, 05/15/2022, 11/28/2021, Additional history exists Depression Screening and Follow-Up [...] this topic Medical Devices Implanted Type Area Body And Fender Worker Device Identifier Shelf Expiration Date Model / Serial / Lot System Hernia Mesh Polypropylene Medium 7cm Prolene 3/Bx - [id number] Implanted:Qty: 1 on 10/11/2017 by Pj Garzon MD at [facility] Implant [employer] 10/24/2021 [facility] / / [id number] Procedures * Due to [place] [employer] law, this organization might not be sharing negative HIV tests. Procedure Name Priority Date/Time Associated Diagnosis Comments COMPREHENSIVE METABOLIC PANEL Routine 04/16/2024 9:53 AM EDT Stage 3a chronic kidney disease HM COLONOSCOPY Routine 08/17/2022 HEPATITIS C ANTIBODY W/REFLEX TO HCV RNA, QUANTITATIVE PCR Routine 07/15/2019 8:08 AM EST from Last 3 Months or Most Recently Relevant to Health Maintenance Results * Due to [place] [employer] law, this organization might not be sharing negative HIV tests. * (ABNORMAL) Comprehensive Metabolic Panel (04/16/2024 9:53 AM EDT) Glucose 76 65 - 99 mg/dL 04/16/2024 6:28 PM [facility] Comment: Fasting reference interval BUN 16 7 - 25 mg/dL 04/16/2024 6:28 PM [facility] Creatinine 1.25 0.70 - 1.35 mg/dL 04/16/2024 6:28 PM [facility] eGFR 62 > OR = 60 mL/min/1. 73m2 04/16/2024 6:28 PM [facility] Bun/Creatinine Ratio SEE NOTE: 6 (calc) 04/16/2024 6:28 PM [facility] Comment: Not Reported: BUN and Creatinine are within reference range. Sodium 139 135 - 146 mmol/L 04/16/2024 6:28 PM EDT [facility] Potassium 4.6 3.5 - 5.3 mmol/L 04/16/2024 6:28 PM [facility] Chloride 107 98 - 110 mmol/L 04/16/2024 6:28 PM [facility] Carbon Dioxide 27 20 - 32 mmol/L 04/16/2024 6:28 PM [facility] Calcium 9.5 8.6 - 10.3 mg/dL 04/16/2024 6:28 PM [facility] Protein, Total 6.6 6.1 - 8.1 g/dL 04/16/2024 6:28 PM EDT [facility] Albumin 4.3 3.6 - 5.1 g/dL 04/16/2024 6:28 PM EDT [facility] Globulin 2.3 1.9 - 3.7 g/dL (calc) 04/16/2024 6:28 PM EDT [facility] Albumin/Globuli n Ratio 1.9 1.0 - 2.5 (calc) 04/16/2024 6:28 PM EDT [facility] Bilirubin, Total 0.7 0.2 - 1.2 mg/dL 04/16/2024 6:28 PM EDT [facility] Alkaline Phosphatase 72 35 - 144 U/L 04/16/2024 6:28 PM EDT [facility] AST 27 10 - 35 U/L 04/16/2024 6:28 PM EDT [facility] ALT 53(H) 9 - 46 U/L 04/16/2024 6:28 PM EDT [facility] Blood Structure of peripheral vein / Unknown 04/16/2024 9:53 AM EDT 04/16/2024 5:19 PM EDT Narrative [facility] - 04/16/2024 6:30 PM EDT FASTING:YES Jeffrey Mar Jr., DO LAB BLOOD ORDERABL ES Final Result [facility] [address], [place] [address], [facility] [address] [place] [address] * HM Colonoscopy (08/17/2022) Aliza Interiano MD HEALTH MAINTENANCE Final Result * Hepatitis C Antibody w/Reflex to HCV RNA, Quantitative PCR (07/15/2019 8:08 AM EST) Hepatitis C Antibody NON-REACT DAGO NON-REACT DAGO 07/15/2019 11:53 PM EST [facility] Signal To Cut-Off 0.01 <1.00 07/15/2019 11:53 PM EST [facility] Comment: HCV antibody was non-reactive. There is no laboratory evidence of HCV infection. In most cases, no further action is required. However, if recent HCV exposure is suspected, a test for HCV RNA (test code 99430) is suggested. For additional information please refer to http://education.Fundability/faq/HES11y4 (This link is being provided for informational/ educational purposes only.) 07/15/2019 8:08 AM EST 07/15/2019 5:58 PM EST Narrative [facility] - 07/16/2019 12:07 AM EST FASTING:YES Jeffrey Mar Jr., DO LAB BLOOD ORDERABL ES Final Result [facility] [address] [place] [address], [facility] [address] [place] [address] from Last 3 Months or Most Recently Relevant to Health Maintenance Insurance [employer] MEDICARE [facility] Advance Directives Documents on File Type Date Recorded Patient Soda Flaker Expl anation Health Care Proxy 10/12/2023 8:46 AM 10/12/spouse Healthcare Agents on File Name Relationship Healthcare Agent Relationship Communication Mary Roa Spouse Health Care Agen [email or web address]
--- OUTSIDE RECORDS SUMMARY | 2025-08-26 13:35 | XMS_ITS | Encounter Summary ---
Author Organization [facility] Address [address] [place] [address] Care Team Providers Care Attorney Lawyer Name Role Phone Jeffrey Mar DO Primary Care Provider + Encounter Details Date Type Department Care Team (Late st Contact Info) Description 07/29/2025 Lab Requisition [facility] - Main Lab [address] [place] [address] Chago Wilson MD [address] [facility] [address] [place] [address] Urinary tract infection, site not specified; Benign prostatic hyperplasia with lower urinary tract symptoms Social History Tobacco Use Types Packs/Day Years Used Date Smoking Tobacco: Never Assessed Sex and Gender Information Value Date Recorded Sex Assigned at Not on file Legal Sex Male 6:08 PM EST Gender Identity Not on file Sexual Orientation Not on file documented as of this encounter Plan of Treatment Not on file documented as of this encounter Procedures Procedure Name Priority Date/Time Associated Diagnosis Comments CULTURE URINE Routine 07/29/2025 12:00 AM EST Urinary tract infection, site not specified Benign prostatic hyperplasia with lower urinary tract symptoms documented in this encounter Results * Culture urine (07/29/2025 12:00 AM EST) Culture, Urine No growth 07/30/2025 12:57 PM EST [facility] Urine Urine specimen obtained by clean catch procedure / Unknown 07/29/2025 07/29/2025 6:12 PM EST us Chago Wilson MD LAB MICROBIOLOGY - NERAL ORDERABLES Final Result [facility] [address] [place] [address], documented in this encounter Visit Diagnoses Diagnosis Urinary tract infection, site not specified Benign prostatic hyperplasia with lower urinary tract symptoms documented in this encounter Care Teams Attorney Lawyer Relationship Specialty Start Date End Date Jeffrey Mar DO [address] [place] [address] PCP - General Family Medicine 07/29/25 documented as of this encounter
== END 2025-08-26 13:02 | disposition home or self-care (01) ==
LOC: HO.HMCFM 11:49
PROVIDERS: PCP Family Medicine; Visit Provider Family Medicine
DX: I10 Essential (primary) hypertension (principal); E78.5 Hyperlipidemia, unspecified; R74.01 Elevation of levels of liver transaminase levels; Z12.5 Encounter for screening for malignant neoplasm of prostate; Z12.11 Encounter for screening for malignant neoplasm of colon; Z00.00 Encounter for general adult medical examination without abnormal findings

== ENCOUNTER → 2025-08-26 11:49 | Outpatient (BNVA) | payer MEDICARE, OTHER, SELFPAY | PROVIDERS: PCP Family Medicine; Visit Provider Family Medicine | DX: Z00.01 Encounter for general adult medical examination with abnormal findings (principal); I10 Essential (primary) hypertension; E78.5 Hyperlipidemia, unspecified; R74.01 Elevation of levels of liver transaminase levels | CPT/HCPCS: 99212 ==